=== PATIENT | female | born 1995 | race African-American/Black ===

== ENCOUNTER → 2018-03-22 | Outpatient (CLI) | payer SELFPAY ==
[~2018-03-22] MED LIST: AMOX-359 PO; AMOX500T10 PO; CYAN100058; DOXY1TAB3 PO; IRON150C19 PO; ONDA-2 PO; School Note; VITA1CAP46 PO
[2018-03-22 11:20] LABS: PLATELET COUNT, AUTOMATED 213 K/uL (150-450)
== END ==
LOC: LAB 08:40
PROVIDERS: ATTEND Obstetrics & Gynecology
DX: Z34.81 Encounter for supervision of other normal pregnancy, first trimester (principal); R82.79 Other abnormal findings on microbiological examination of urine
CPT/HCPCS: 36415; 81001; 85025; 86592; 86703; 86762; 86787; 86850; 86900; 86901; 87088; 87340

== ENCOUNTER → 2018-06-20 | Outpatient (CLI) | payer MEDICAID ==
[~2018-06-20] MED LIST changes: +FLU60VIA41 IM; +PEDI1TAB5 PO
--- NOTE | 2018-06-20 15:18 | RADIOLOGY IMAGING REPORT ---
FACILITY: [facility] PATIENT NAME: Nathalie Laguerre : 1995 MR: [id number] V: [id number] EXAM DATE: ORDERING PHYSICIAN: ALEKSANDR METZ TECHNOLOGIST: Location: [facility] [place] Patient: Nathalie Laguerre : 1995 Visit/Account:[id number] Date of Sevice: 06/20/2018 [facility] OB ANATOMICAL SURVEY History: survey ADDITIONAL HISTORY: LMP 01/31/2018 translating to a menstrual age of 20 weeks zero days COMPARISON STUDIES: none FINDINGS: Intrauterine gestations: one presentation: Variable position. Final position Vertex. heart rate: 138 bpm Amniotic fluid volume: EJ 14.8 cm; MVP 4.8 cm Placenta: Posterior. Inferior margin 3.2 cm from the internal os. No evidence of previa. Maternal adnexa: negative Cervix: closed and 4.1 cm in length Anatomic Survey: There is a single choroid plexus cyst measuring 3 x 5 mm. Neural anatomy and spinal axis appear othe rwise unremarkable. Face lips and nose are visualized. Four-chamber heart and outflow tracks, stom ach, kidneys, bladder , umbilical cord, normal cord insertion seen. 2 arms and 2 legs visualized. Fe yaquelin anatomy unremarkable. Biometrics: BPD: 4.4 cm corresponding to 19 weeks three days HC: 17.6 cm corresponding to 20 weeks one AC: 16.1 cm corresponding to 21 weeks two days FL: 3.4 cm corresponding to 20 weeks four days Measurements are concordant or within normal variance with composite sonographic age 20 weeks and thr ee days which corresponds well with clinical dates Estimated weight (EFW): 373 grams +/- 55 grams . 84th percentile based on clinical dates. IMPRESSION: Single living intrauterine gestation in variable position with biometric measurements and composite s onographic age within normal variance of previously established clinical dates. anatomy: Solitary choroid plexus cyst noted. Choroid plexus cysts in isolation are usually i ncidental and resolve over the . There is an increased incidence of choroid plexus cysts wi th genomic abnormalities. Consequently, management options dependent upon parental desire would incl ude evaluation for other markers or level two ultrasound or karyotyping via amniocentesis versu s follow-up ultrasound. anatomy otherwise unremarkable. Report Dictated By: Josué Terry MD at 06/20/2018 2:57 PM Report E-Signed By: Josué Terry MD at 06/20/2018 3:15 PM WSN:MARIO
== END ==
LOC: RAD 11:01
PROVIDERS: ATTEND Obstetrics & Gynecology
DX: Z34.02 Encounter for supervision of normal first pregnancy, second trimester (principal); G93.0 Cerebral cysts

== ENCOUNTER → 2018-08-16 | Outpatient (CLI) | payer MEDICAID ==
[~2018-08-16] MED LIST changes: +DIPH0.5D12 IM
[2018-08-16 14:46] LABS: PLATELET COUNT, AUTOMATED 197 K/uL (150-450)
== END ==
LOC: LAB 13:31
PROVIDERS: ATTEND Advanced Practice Midwife
DX: Z3A.28 28 weeks gestation of pregnancy (principal); O16.2 Unspecified maternal hypertension, second trimester
CPT/HCPCS: 36415; 82040; 82247; 82310; 82374; 82435; 82565; 82570; 82947; 82950; 83615; 84075; 84132; 84155; 84156; 84295; 84450; 84460; 84520; 84550; 85025

== ENCOUNTER → 2018-08-29 | Outpatient (CLI) | payer MEDICAID ==
--- NOTE | 2018-08-29 13:54 | RADIOLOGY IMAGING REPORT ---
FACILITY: [facility] [place] PATIENT NAME: Nathalie Laguerre : 1995 MR: [id number] V: [id number] EXAM DATE: [id number] ORDERING PHYSICIAN: ELANA MONTGOMERY TECHNOLOGIST: [place] [facility] [place] Nathalie Laguerre : 1995 Visit/Account:[id number] Date of Sevice: 08/29/2018 [facility] [place] OB LIIMITED HISTORY: Follow-up decreased growth compared to dates COMPARISON: June 20, 2018 TECHNIQUE: Transabdominal imaging was performed for assessment of the fetus and maternal pelvic s tructures. Transvaginal imaging was not performed. FINDINGS: Intrauterine gestations: Single. presentation: Cephalic. heart rate: 1:30 bpm. Amniotic fluid volume: ; EJ 11.76 cm; MVP 3.67 cm. The umbilical cord SD ratios are as follows, at the placenta 2.4, at the cord insertion 3.1 and the m idsection 2.7 Placenta: Posterior. Uterus: Gravid, otherwise grossly unremarkable where visualized. Maternal adnexa/ovaries: Not evaluated. Cervix: Not evaluated. Gestational Parameters: BPD: 7.43 cm, 32nd percentile HC: 28.45 cm, 50th percentile AC: 23.957 m, 6th percentile FL: 5.51 cm, 14th percentile Average ultrasound age (AUA): 29 weeks/ five days Estimated age based on LMP: 30 weeks/ zero days Estimated weight (EFW): 1303 grams +/- 191 grams 10th percentile Anatomic Survey: Anatomic survey not performed. Previously noted choroid plexus cyst was no longer seen however IMPRESSION: Single viable fetus in cephalic presentation with an estimated gestational age by measurements of 29 weeks and five days. This corresponds to the estimated gestational age on LMP of 30 weeks and zero d ays Estimated weight 1303 g, 10th percentile EJ measured 11.76 cm, MVP 3.67 cm The umbilical cord SD ratios are as follows: At the placenta 2.4, at the cord insertion 3.1 mid secti on 2.7 Report Dictated By: Deandra Escobar MD at 08/29/2018 1:40 PM Report E-Signed By: Deandra Escobar MD at 08/29/2018 1:48 PM WSN:[email or web address]
== END ==
LOC: RAD 09:14
PROVIDERS: ATTEND Advanced Practice Midwife
DX: Z02.9 Encounter for administrative examinations, unspecified (principal)

== ENCOUNTER → 2018-09-19 | Outpatient (CLI) | payer MEDICAID ==
[~2018-09-19] MED LIST changes: +BUTA1TAB14 PO
--- NOTE | 2018-09-19 11:37 | RADIOLOGY IMAGING REPORT ---
FACILITY: [facility] PATIENT NAME: Nathalie Laguerre : 1995 MR: [id number] V: [id number] EXAM DATE: ORDERING PHYSICIAN: ELANA MONTGOMERY TECHNOLOGIST: [place] [facility] [place] Patient: Nathalie Laguerre : 1995 Visit/Account:[id number] Date of Sevice: 09/19/2018 Exam type: [facility] BIOPHYSICAL W/O NST History: MATERN CARE FOR OTH OR SUSP POOR FETL GRTH, THIRD TRI, UNSP Comparison: August 29, 2018. Findings: There is a single fetus in vertex presentation. heart rate is 129 bpm. The placenta is fundal and posterior in location The EJ measures 7.6 cm The MVP measures 3.02 x 5.21 cm Biophysical profile score is eight out of eight Gestational age by LMP is 33 weeks and four days IMPRESSION: 1. Single viable fetus in vertex presentation with an estimated gestational age by LMP of 33 weeks a nd four days The biophysical profile score was eight out of eight The EJ measured 7.6 cm. The MVP was 3.02 x 5.21 cm Report Dictated By: Deandra Escobar MD at 09/19/2018 11:15 AM Report E-Signed By: Deandra Escobar MD at 09/19/2018 11:33 AM WSN:MARIO
== END ==
LOC: RAD 08:52
PROVIDERS: ATTEND Advanced Practice Midwife
DX: Z02.9 Encounter for administrative examinations, unspecified (principal)

== ENCOUNTER → 2018-09-26 | Outpatient (CLI) | payer MEDICAID ==
--- NOTE | 2018-09-26 14:11 | RADIOLOGY IMAGING REPORT ---
FACILITY: [facility] PATIENT NAME: Nathalie Laguerre : 1995 MR: [id number] V: [id number] EXAM DATE: ORDERING PHYSICIAN: ELANA MONTGOMERY TECHNOLOGIST: Location: [facility] [place] Patient: Nathalie Laguerre : 1995 Visit/Account:[id number] Date of Sevice: 09/26/2018 biophysical profile Indication: Asymmetric IUGR. Follow-up. Reported gestational age 34 weeks 4 days. Comparison: September 19, 2018 Findings: breathing movement: 2/2 Gross body movement: 2/2 tone: 2/2 Amniotic fluid volume: 2/2 There is a posterior placenta without evidence of placenta previa. There is a single live intrauterin e gestation with heart tones measuring 150 beats per minute. Four quadrant amniotic fluid index is normal measuring 11.7 cm (previously 7.6 cm). The largest pocke t measures 4.7 cm. IMPRESSION: 1. Normal biophysical profile. 2. Normal amniotic fluid index. Report Dictated By: Modesto Paez at 09/26/2018 2:03 PM Report E-Signed By: Modesto Paez at 09/26/2018 2:06 PM WSN:[email or web address]
== END ==
LOC: RAD 07:58
PROVIDERS: ATTEND Advanced Practice Midwife
DX: Z02.9 Encounter for administrative examinations, unspecified (principal)

== ENCOUNTER → 2018-10-03 | Outpatient (CLI) | payer MEDICAID ==
--- NOTE | 2018-10-03 14:18 | RADIOLOGY IMAGING REPORT ---
FACILITY: [facility] [place] PATIENT NAME: Nathalie Laguerre : 1995 MR: [id number] V: [id number] EXAM DATE: ORDERING PHYSICIAN: ELANA MONTGOMERY TECHNOLOGIST: Location: [facility] [place] Patient: Nathalie Laguerre : 1995 Visit/Account:[id number] Date of Sevice: 10/03/2018 [facility] BIOPHYSICAL W/O NST Biophysical profile FINDINGS: Following parameters were obtained. breathing/2 Gross body movements/2 tone/2 Amniotic fluid volume/2 (10.6 cm per largest pocket measures 3.6 cm. ) Fetus in a vertex presentation Placenta posterior and fundal. Heart rate 130 BPM. IMPRESSION: Biophysical profile of 03/20. Report Dictated By: Enoch Sunshine MD at 10/03/2018 2:11 PM Report E-Signed By: Enoch Sunshine MD at 10/03/2018 2:14 PM WSN:[email or web address]
== END ==
LOC: US 09:39
PROVIDERS: ATTEND Advanced Practice Midwife
DX: O36.5990 Maternal care for other known or suspected poor fetal growth, unspecified trimester, not applicable or unspecified (principal)
CPT/HCPCS: 76820

== ENCOUNTER → 2018-10-10 | Outpatient (CLI) | payer MEDICAID ==
[~2018-10-10] MED LIST changes: +BET6I IM ONLY; +CALC-515 PO; +DIPH-911 PO; +PREN-127 PO
== END ==
LOC: LAB 09:30
PROVIDERS: ATTEND Advanced Practice Midwife
DX: Z36.85 Encounter for antenatal screening for Streptococcus B (principal)
CPT/HCPCS: 87081

== ENCOUNTER 2018-10-12 20:16 | Inpatient (IN) | payer MEDICAID ==
[~2018-10-12] VITALS: Ht 154.9 cm; Wt 55.8 kg
[2018-10-12] MEDS ORDERED: FAMOTIDINE(*) 20MG/50ML PREMIX 50 ML IVPB PRN (20:19)
[2018-10-12] MEDS ORDERED: OXYTOCIN 30 UNIT/D5LR 500 ML 500 ML IV PRN (20:19)
[2018-10-12] MEDS ORDERED: ceFAZolin(*) 2GM/D5W 50ML 50 ML IVPB PRN (20:19)
[2018-10-12] MEDS ORDERED: FLUSH 10 ML SYR IVP PRN (20:20)
[2018-10-12] MEDS ORDERED: METOCLOPRAMIDE 10 MG/2 ML SDV IVP PRN (20:20)
[2018-10-12] MEDS ORDERED: LIDOCAINE 1% LOCAL 300 MG/30ML INJ PRN (20:20)
[2018-10-12] MEDS ORDERED: DINOPROSTONE 10 MG INSERT PV ONE (20:20)
[2018-10-12] MEDS ORDERED: LIDOCAINE/SOD BICARB 8.4% SYR SC PRN (20:20)
[2018-10-12] MEDS ORDERED: ACETAMINOPHEN 500 MG TAB PO PRN (21:20)
[2018-10-12] MEDS ORDERED: ONDANSETRON 4 MG/2 ML VIAL IVP PRN (21:20)
[2018-10-12] MEDS ORDERED: ZOLPIDEM TARTRATE 5 MG TAB PO ONE (21:20)
[2018-10-12] MEDS: LR(*) 1000 ML BAG 1,000 ML IV PRN (21:45)
[2018-10-12 21:47] LABS: PLATELET COUNT, AUTOMATED 180 K/uL (150-450)
[2018-10-13] VITALS: BP 118/72; Ht 154.9 cm; Wt 55.8 kg
[2018-10-13] MEDS: CALCIUM CARBONATE 500 MG CHEW PO PRN ×2 (00:57→12:43)
--- NOTE | 2018-10-13 08:23 | History & Physical ---
History of Present Illness Age of Patient: 22 : 1 Para or TPAL: 0 EDC per U/S: Nov 03, 2018 Chief Complaint Pt is a 22yo at 37 0/7 by LMP and first trimester US with an MILKA of 11/04/18 who was a scheduled IOL admit last night for asymmetric FGR. M recommended that the pt be induced at 37 weeks for AC of <3%tile/ EFW at 31%. Pt was admitted and Cervidil was placed for cervical ripening overnight. Pt denies ROSS, vision changes, N/V, and RUQ pain. She is feeling some mild contractions, but nothing painful. Her boyfriend Gerard is at the bedside for support. She desires and unmedicated . History Patient's Blood Type: B Positive Rubella Status: Immune Group B Strep Screen: Negative Obstetrical History: Current FGR Allergies: Coded Allergies: No Known Drug Allergies (Unverified , 09/18/16) Family History: FH: hypertension MGM M-UNCLE Med Rec Home Meds Active Scripts [School Note] No Conflict Check Patient was seen in the office today. Tested positive for influenza A. May return to school on 09/17/17. Prov:DERECK CONTRERAS DNP, [employer]-BC 09/12/17 Reported Medications Calcium Carbonate (TUMS) 200 Mg Tab.chew, 200 MG PO, TAB.CHEW 10/10/18 Diphenhydramine Hcl (UNISOM) 50 Mg Capsule, 50 MG PO, CAPSULE 10/10/18 Vits W-Ca,Fe,Fa(<1MG) ( VITAMINS) 1 Each Tablet, 1 EACH PO DAILY, TAB 10/10/18 Discontinued Reported Medications Cyanocobalamin (Vitamin B-12) (Vitamin B-12) 1,000 Mcg Capsule 03/22/18 Iron Polysaccharides Complex (POLYSACCHARIDE IRON 150) 150 Mg Capsule, 150 MG PO, CAPSULE 03/22/18 Vitamin B Complex (VITAMIN B COMPLEX) 1 Each Capsule, 1 EACH PO, CAPSULE 03/22/18 Discontinued Scripts Butalb/Acetaminophen/Caff 50-325-40 Mg (FIORICET 50-325-40) 1 Each Tablet, 1-2 TAB PO Q4H for headache, #30 TAB 0 Refills Prov:ELANA MONTGOMERY CN 09/06/18 Pediatric Multivit Comb No.42 (FLINTSTONES) 1 Each Tab.chew, 2 EACH PO DAILY, #60 TAB.CHEW Prov:ALEKSANDR METZ MD 05/24/18 Doxylamine/Pyridoxine Hcl (BARRY SANTIAGO 10-10 MG TABLET) 1 Each Tablet.dr, 4 EACH PO DIRECTED, #60 TAB 1 Refill Take 2 tabs PO QHS PRN nausea. If nausea continues, take 1 tab w/ breakfast. May take 1 tab at lunch PRN. Max of 4 tabs per day. Prov:ALEKSANDR METZ MD 03/22/18 Review of Systems Constitutional: No Fever Neurological: No Dizziness Eyes: No Vision Change Cardiovascular: No Chest Pain Respiratory: No Shortness of Breath Gastrointestinal: No Nausea, No Vomiting, No Diarrhea Musculoskeletal: No Pain Psychiatric: No Depression, No Anxiety Exam General Exam Vital Signs Vital Signs Date Time Temp Pulse Resp B/P (MAP) Pulse Ox O2 Delivery O2 Flow Rate FiO2 10/13/18 00:00 97.9 70 14 118/72 (87) 94 Room Air General Apperance: Alert/Awake/No Acute Distress Neuro: No Gross deficits Eyes: Normal Extraocular Movement & Vison, PERRLA ENT: Normal Cardiovascular: Regular Rate and Rhythm Respiratory: No Respiratory Distress, Clear to Auscultation Abdomen: Soft, Non-Tender, Non-Distended : Normal Musculoskeletal: No Weakness/Pain Extremities: No Cyanosis,Clubbing or Edema Integumentary: Skin Intact without Lesions or Rash Psychological: Alert & Oriented X3, Appropriate Mood & Affect Cervical Dialation: 1 Cervical Effacement (%): 80 Cervical Consistency: Soft Cervical Position: Mid Station: -3 Presentation: Vertex Uterine Contractions(Q min): 5 Uterine Contraction Strength: Mild UC Resting Tone: Soft Fetus Feeling Movement?: Yes Estimated Weight(grams): 2200 Heart Tones: 130 Heart Tone Variabilty: Moderate FHT Accelerations: 15X15 FHT Decelerations: None FHT Category: I Medical Decision Making Data Points Result Diagram: 10/12/180 Assessment and Plan Hospital Day: 2 [employer] Plan: Routine Labor/Induct Care Problems: (1) Asymmetric intrauterine growth restriction affecting , antepartum Status: Acute (2) Encounter for induction of labor Status: Acute Assessment & Plan: Assessment/Plan: AP is a 22 y.o. at 37w0d wks with an Estimated Date of Delivery: 11/03/18 dated by LMP and first trimester US here for IOL for FGR Labor state: Not in labor, ko score 4 after Cervidil over night, plan for cook catheter and then possibly low dose Pitocin concurrently. Reviewed R/B/A with pt. well-being: Category I FHT: Continuous monitoring for indica tions (FGR) Maternal well-being: VSS , normotensive, afebrile and membranes intact PNL: GBS neg, Type/Rh B+, rubella immune Pain Management: Plans for unmedicated and to use non-pharm methods, hydrotherapy, movement, music therapy, aromatherapy. Epidural code word: Feed: Breast c/b: * Asymmetric growth restriction Anticipate labor progression, re-evaluate in 2-3 hours or prn ELANA MONTGOMERY CNM Oct 13, 2018 08:23
[2018-10-13] MEDS: fentaNYL CITR 100 MCG/2 ML AMP IVP PRN ×2 (09:48→22:32)
--- NOTE | 2018-10-13 10:13 | Labor Progress Note ---
Labor Subjective Progress Notes Subjective Pt is having contractions every 2-5 minutes that are only mildly uncomfortable, Denies LOF and VB. Denies ROSS, vision changes, and RUQ pain. Mother and boyfriend at bedside and very supportive. Verbalizes understanding of plan for cervical ripening balloon and Pitocin induction Feeling Movement?: Yes Vaginal Discharge/Fluid: Bloody Show Labor Pain: Mild Neurological: No Headache Eyes: No Visual Disturbances Labor Objective Vital Signs Vital Signs Date Time Temp Pulse Resp B/P (MAP) Pulse Ox O2 Delivery O2 Flow Rate FiO2 10/13/18 00:00 97.9 70 14 118/72 (87) 94 Room Air Vaginal Discharge/Fluid?: Bloody Show Cervical Dialation: 1 Cervical Effacement (%): 80 Cervical Consistency: Soft Cervical Position: Anterior Station: -2 Presentation: Vertex Uterine Contractions(Q min): 3 Uterine Contraction Strength: Mild UC Resting Tone: Soft Fetus Estimated Weight(grams): 2200 Heart Tones: 130 Heart Tone Variabilty: Moderate FHT Accelerations: 15X15 FHT Decelerations: None FHT Category: I General Exam General Appearance: Alert/Awake/No Acute Distress ENT: Normal Neck: No Masses Cardiovascular: Normal Rhythm & Peripheral Pulses Respiratory: No Respiratory Distress, Clear to Auscultation Abdomen: Gravid - Non-Tender : Normal Musculoskeletal: No Weakness/Pain Extremities: No Cyanosis,Clubbing or Edema Integumentary: Skin Intact without Lesions or Rash Psychological: Alert & Oriented X3, Appropriate Mood & Affect Other Result Diagram: 10/12/182139 Assessment and Plan Problems: (1) Asymmetric intrauterine growth restriction affecting , antepartum Status: Acute (2) Encounter for induction of labor Status: Acute Assessment & Plan: Assessment/Plan: AP is a 22 y.o. at 37w0d wks with an Estimated Date of Delivery: 11/03/18 dated by LMP and first trimester US here for IOL for FGR Labor state: Early labor, ko score 4 after Cervidil over night, Cook catheter placed and then low dose Pitocin concurrently at 1 hour. Reviewed R/B/A with pt. well-being: Category I FHT: Continuous monitoring for indications (FGR) Maternal well-being: VSS , normotensive, afebrile and membranes intact PNL: GBS neg, Type/Rh B+, rubella immune Pain Management: Plans for unmedicated and to use non-pharm methods, hydrotherapy, movement, music therapy, aromatherapy. Epidural code word: RED. Pt did request IV fentanyl for cath placement and tolerate well Feed: Breast c/b: * Asymmetric growth restriction Anticipate labor progression, re-evaluate in 2-3 hours or prn ELANA MONTGOMERY CNM Oct 13, 2018 10:13
[2018-10-13] MEDS ORDERED: TERBUTALINE SULF 1 MG/ML VIAL IVP PRN (10:25)
[2018-10-13] MEDS ORDERED: OXYTOCIN 30 UNIT/D5LR 500 ML 500 ML IV PRN (11:00)
--- NOTE | 2018-10-13 12:46 | Labor Progress Note ---
Labor Subjective Progress Notes Subjective Pt is starting to feel more uncomfortable with contractions, breathing through them without talking. Did not like the fentanyl IV earlier for cath placement. She would like to try the bath. Asking lots of questions about process and hoping that it does not take that long. Feeling Movement?: Yes Vaginal Discharge/Fluid: Bloody Show Labor Pain: Moderate Neurological: No Headache Eyes: No Visual Disturbances Labor Objective Vital Signs Vital Signs Date Time Temp Pulse Resp B/P (MAP) Pulse Ox O2 Delivery O2 Flow Rate FiO2 10/13/18 00:00 97.9 70 14 118/72 (87) 94 Room Air Vaginal Discharge/Fluid?: Bloody Show Fetus Estimated Weight(grams): 2200 Heart Tones: 130 Heart Tone Variabilty: Moderate FHT Accelerations: 15X15 FHT Decelerations: Variable (one variable) FHT Category: II General Exam General Appearance: Alert/Awake/No Acute Distress, Afebrile ENT: Normal Neck: No Masses : Normal Psychological: Alert & Oriented X3, Appropriate Mood & Affect Other Result Diagram: 10/12/182139 Assessment and Plan Hospital Day: 1 [employer] Plan: Routine Labor/Induct Care Problems: (1) Asymmetric intrauterine growth restriction affecting , antepartum Status: Acute (2) Encounter for induction of labor Status: Acute Assessment & Plan: Assessment/Plan: AP is a 22 y.o. at 37w0d wks with an Estimated Date of Delivery: 11/03/18 dated by LMP and first trimester US here for IOL for FGR Labor state: early labor, cook catheter with concurrent low dose Pitocin started well-being: Category I FHT: CAT II for one variable. Continuous monitoring for indications (FGR) Maternal well-being: VSS , normotensive, afebrile and membranes intact PNL: GBS neg, Type/Rh B+, rubella immune Pain Management: Using hydrotherapy music therapy, aromatherapy with good eff ect. Epidural code word: RED Feed: Breast c/b: * Asymmetric growth restriction Anticipate labor progression, re-evaluate in 2-3 hours or prn. Will make PEDS aware when time for delivery for FGR 37 weeks ELANA MONTGOMERY CNM Oct 13, 2018 12:46
--- NOTE | 2018-10-13 16:43 | Labor Progress Note ---
Labor Subjective Progress Notes Subjective Pt is up and walking around. She feels she is tolerating the pain with contractions well. She is breathing and focusing inward with contractions. Feeling Movement?: Yes Labor Pain: Moderate Neurological: No Headache Eyes: No Visual Disturbances Labor Objective Vital Signs Vital Signs Date Time Temp Pulse Resp B/P (MAP) Pulse Ox O2 Delivery O2 Flow Rate FiO2 10/13/18 00:00 97.9 70 14 118/72 (87) 94 Room Air Presentation: Vertex Uterine Contraction Strength: Moderate UC Resting Tone: Soft Fetus Estimated Weight(grams): 2200 Heart Tone Variabilty: Moderate FHT Accelerations: 15X15 FHT Decelerations: None General Exam General Appearance: Alert/Awake/No Acute Distress Respiratory: No Respiratory Distress Psychological: Alert & Oriented X3 Other Result Diagram: 10/12/182139 Assessment and Plan Problems: (1) Asymmetric intrauterine growth restriction affecting , antepartum Status: Acute (2) Encounter for induction of labor Status: Acute Assessment & Plan: Assessment/Plan: AP is a 22 y.o. at 37w0d wks with an Estimated Date of Delivery: 11/03/18 dated by LMP and first trimester US here for IOL for FGR Labor state: Approaching active labor, cook catheter with concurrent low dose Pitocin started well-being: Category CAT II for one variable and 2 late decelerations with moderate variability. Encourage position changes. Continuous monitoring for indications (FGR) Maternal well-being: VSS , normotensive, afebrile and membranes intact PNL: GBS neg, Type/Rh B+, rubella immune Pain Management: Using hydrotherapy, music therapy, aromatherapy, upright positions. Epidural code word: RED Feed: Breast c/b: * Asymmetric growth restriction Anticipate labor progression, re-evaluate in 2-3 hours or prn. PEDS aware and when time for delivery will let them know ELANA MONTGOMERY CNM Oct 13, 2018 16:43
[2018-10-13] MEDS: LR(*) 1000 ML BAG 1,000 ML IV PRN ×2 (17:59→20:00)
--- NOTE | 2018-10-13 19:10 | Labor Progress Note ---
Labor Subjective Progress Notes Subjective Pt is in the tub after AROM. Feels she is coping well, but had a hard time tolerating the cervical check and AROM. Mother at bath side and very supportive. Denies ROSS, vision changes, RUQ pain. Feeling contraction pain in lower abdomen. Feeling Movement?: Yes Vaginal Discharge/Fluid: Bloody Show, Clear Fluid, Moderate Amount Labor Pain: Moderate Neurological: No Headache Eyes: No Visual Disturbances Labor Objective Vital Signs Vital Signs Date Time Temp Pulse Resp B/P (MAP) Pulse Ox O2 Delivery O2 Flow Rate FiO2 10/13/18 00:00 97.9 70 14 118/72 (87) 94 Room Air Vaginal Discharge/Fluid?: Bloody Show, Clear Fluid Cervical Dialation: 7.5 Cervical Effacement (%): 80 Cervical Consistency: Soft Cervical Position: Anterior Station: 0 Presentation: Vertex Uterine Contraction Strength: Moderate UC Resting Tone: Soft Fetus Estimated Weight(grams): 2200 Heart Tones: 140 Heart Tone Variabilty: Minimal (minimal with periods of moderate. In the tub) FHT Accelerations: Present, 15X15 FHT Decelerations: Early, Late FHT Category: II General Exam General Appearance: Alert/Awake/No Acute Distress, Afebrile ENT: Normal Abdomen: Gravid - Non-Tender Psychological: Alert & Oriented X3, Appropriate Mood & Affect Other Result Diagram: 10/12/182139 Assessment and Plan Problems: (1) Asymmetric intrauterine growth restriction affecting , antepartum Status: Acute (2) Encounter for induction of labor Status: Acute Assessment & Plan: Assessment/Plan: AP is a 22 y.o. at 37w0d wks with an Estimated Date of Delivery: 11/03/18 dated by LMP and first trimester US here for IOL for FGR Labor state: Approaching transition, cook catheter came out at 1722 with good bloody show, pt has rapid dilation since cook came out. Continue pitocin and position changes well-being: Category CAT II for variable, repetitive early decels and rare late deceleration. Difficulty monitoring in the tub. Readjusted monitor and the tracing is more consistent. Will plan to get her out of the tub soon if continues minimal variability for maternal oxygen and fluid bolus. Continuous monitoring for indications (FGR) Maternal well-being: VSS , normotensive, afebrile and AROM for clear fluid @1807 PNL: GBS neg, Type/Rh B+, rubella immune Pain Management: Using hydrotherapy and coping well. Epidural code word: RED Feed: Breast c/b: * Asymmetric growth restriction Anticipate labor progression, re-evaluate in 2-3 hours or prn. PEDS aware and when time for delivery will let them know ELANA MONTGOMERY CNM Oct 13, 2018 19:10
[2018-10-13] MEDS ORDERED: BENZOCAINE 20% 60 ML BTL TP PRN (22:15)
[2018-10-13] MEDS ORDERED: ACETAMINOPHEN 325 MG TAB PO PRN (22:15)
[2018-10-13] MEDS ORDERED: LANOLIN OINT 7 GM TUBE TP PRN (22:15)
[2018-10-13] MEDS ORDERED: HYDROCORTISONE 2.5% CR 30GM TB PR PRN (22:15)
[2018-10-13] MEDS ORDERED: GLYCERIN/WITCH HAZEL LEAF 1 PK TP PRN (22:15)
[2018-10-13] MEDS ORDERED: MAGNESIUM HYDROXIDE* 30ML UDCP PO PRN (22:15)
[2018-10-13] MEDS: IBUPROFEN 800 MG TAB PO SCH (22:31)
--- NOTE | 2018-10-13 22:43 | OB Delivery Note ---
Delivery Note Vaginal Delivery Type: Spont. Vaginal Delivery Delivery Date: Oct 13, 2018 Estimated Gestational Age(wks): 37 Delivery Anesthesia: Other (non-pharm methods) Infant Sex: Male Apgars: 1 Minute, 5 Minute Repair Needed: Laceration, Vaginal, Perineal, 2nd Degree Estimated Blood Loss: 300 Notes: AP is a 22 yo G1 now P1 at 37 0/7 who was admitted for an IOL for FGR on 10/12/18 with Cervidil, cervical ripening balloon, AROM and Pitocin. Pt was admitted to the family care unit @ 1999 for IOL for FGR. Cervical exam on admission was /-3. She had AROM on 10/13/2018 at 1807, for clear moderate amount of fluid. Pt was GBS was neg. FHR were CAT I primarily throughout first stage. Pt utilized hydrotherapy, music, aromatherapy and controlled breathing primarily for pain management. Pt was completely dilated on 10/13/18 @ 1921 and pt began pushing at 1937. At 2057 pt had a NSVB of live male infant APGARS 7/8 weighing. The head delivered spontaneously in the OA position and restituted DUKE with no nuchal cord. The anterior shoulder was delivered a traumatically and the posterior shoulder followed. Body delivered easily. Face was wiped with nose and bulb suction and then placed on the maternal abdomen. The infant was dried and stimulated and noted to have a spontaneous cry and spontaneous movement of all 4 extremities. Cord was clamped X 2 by CNM after pulsations ceased and cut by patient's mother. Mother was in hands and knees position. At 2110 the placenta and membranes delivered spontaneous and intact with a 3 vessel cord after gentle downward traction and maternal push. 30 units of Pitocin was placed in 500cc IV to firm the uterus and started immediately after placenta delivery. Upon inspection of the perineum a second degree laceration was noted and repaired using a 3-0 Vicryl under 1% lidocaine. Hemostasis observed. EBL 300with fundus firm with minimal bleeding. Mom and baby were left in stable condition. initiated. "I personally examined the patient and there are no unintended foreign objects in the vagina and sponge and lap sponges counts were correct. Yeimi Gallegos CNM was present throughout the entire delivery as well as Yaritza Medina CNM [employer] in Attendence: YEIMI Morales CNM Oct 13, 2018 22:42
[2018-10-13 23:05] VITALS: BP 121/70
[2018-10-14] MEDS: APAP/HYDROCODONE 325/5 TAB PO PRN ×3 (00:42→20:23)
[2018-10-14] MEDS: IBUPROFEN 800 MG TAB PO SCH ×3 (02:10→15:53)
[2018-10-14 03:20] VITALS: BP 121/70
[2018-10-14] MEDS: DOCUSATE CALCIUM 240 MG CAP PO SCH ×2 (08:43→20:23)
[2018-10-14 08:45] VITALS: BP 116/72
[2018-10-14 13:30] VITALS: BP 115/65
--- NOTE | 2018-10-14 13:58 | OB/GYN Progress Note ---
OB Subjective Progress Notes Subjective AP is feeling well today. She has a good night and got a few hours of sleep. is going well and she is working on getting a good latch. She reports colostrum and soft breasts. She is having moderate bleeding with minimal cramping, but her perineal area is quite sore. She is wondering is she could have something a little stronger just for today for her pain, as she is having difficulty sitting. She is eating and drinking well. Denies ROSS, vision changes, RUQ abd pain, BLE pain or tenderness and uterine tenderness. Her boyfriend is at the bedside and is very supportive and helping her with . GI: POS Flatus; NEG Nausea, NEG Vomiting, NEG Bowel Movement : Voiding Well, Vaginal Bleeding, Moderate Pain: Moderate, Tolerating PO Pain Meds Neurological: No Headache Eyes: No Visual Disturbances OB Objective Physical Exam Vital Signs Date Time Temp Pulse Resp B/P (MAP) Pulse Ox O2 Delivery O2 Flow Rate FiO2 10/14/18 08:45 98.1 78 18 116/72 (87) 95 Room Air Intake and Output 10/14/18 06:59 Intake Total 2000 ml Balance 2000 ml IV Total 2000 ml General Appearance: Alert/Awake/No Acute Distress, Afebrile Neurological: No Gross deficits Eyes: Normal Extraocular Movement & Vison, PERRLA ENT: Normal Neck: No Masses Cardiovascular: Normal Rhythm & Peripheral Pulses Respiratory: No Respiratory Distress Abdomen: Soft, Non-Tender, Non-Distended, RUQ Non-Tender, Fundus Firm Incision: Clean (laceration well approximated and no signs of infection), Dry, Intact : Normal Musculoskeletal: No Weakness/Pain Extremities: No Cyanosis,Clubbing or Edema Integumentary: Skin Intact without Lesions or Rash Psychological: Alert & Oriented X3, Appropriate Mood & Affect Result Diagram: 10/12/182139 Assessment and Plan Problems: (1) Asymmetric intrauterine growth restriction affecting , antepartum Status: Resolved (2) Encounter for induction of labor Status: Resolved (3) (normal spontaneous vaginal delivery) Status: Resolved (4) Second degree laceration of perineum, delivered, current hospitalization Status: Acute Assessment & Plan: Advised pt to use the yuko bottle when urinating and only pat dry. Use the tucks and spray as needed as well as ibuprofen and [place] if needed. Pelvic rest and stool softeners as not to strain. (5) care and examination of lactating mother Onset Date: ~ 10/13/2018 Assessment & Plan: AP is s/p day # 1 after an of a male infant last night 10/13/18. She is progressing well and is up and about. She is getting help with from the nurses. Her pain is not tolerated with just ibuprofen so I asked the nurses to please give her [place] today. She has adequate family support. Plan for her to be discharged tomorrow to home. (6) care and examination immediately after delivery Status: ELANA Farooq CNM Oct 14, 2018 13:58
[2018-10-14 16:00] VITALS: BP 109/62
[2018-10-14 20:25] VITALS: BP 126/60
[2018-10-15 03:43] VITALS: BP 124/73
[2018-10-15 08:46] VITALS: BP 117/74
[2018-10-15] MEDS ORDERED: IBUPROFEN 800 MG TAB PO SCH (10:00)
[2018-10-15] MEDS: DOCUSATE CALCIUM 240 MG CAP PO SCH (10:31)
--- NOTE | 2018-10-15 11:38 | OB/GYN Discharge Summary ---
Discharge Summary Reason for Hosp/Final Diag: (1) Asymmetric intrauterine growth restriction affecting , antepartum Status: Resolved (2) Encounter for induction of labor Status: Resolved (3) (normal spontaneous vaginal delivery) Status: Resolved (4) Second degree laceration of perineum, delivered, current hospitalization Status: Acute Hospital Course & Plan: Advised pt to use the yuko bottle when urinating and only pat dry. Use the tucks and spray as needed as well as ibuprofen and [place] if needed. Pelvic rest and stool softeners as not to strain. (5) care and examination of lactating mother Onset Date: ~ 10/13/2018 Hospital Course & Plan: AP is s/p day # 2 after an of a male infant on 10/13/18. She is progressing well and is up and about. She is doing well with . She has one small blister on her right nipple and has not nursed from that side this am. Stressed the importance of nursing both sides every time and if it is too painful than to pump that side. Her perineal pain is better today. She has taken one Lortab and that helped. She just has difficulty sitting. She denies ROSS, vision changes, RUQ pain, anxiety, heavy bleeding, and BLE calf pain. She has adequate family support. Plan for her to be discharged today and to room in with her baby as he will stay another night because he needs oxygen. Reviewed discharge instructions: Anxiety/depression, fevers, mastitis/clogged milk ducts, endometritis, Pre Eclampsia symptoms, DVTs, UTI symptoms and heavy bleeding. Encouraged pelvic rest for 6 weeks, increase hydration and 500cal/day increase for . Pt and boyfriend v erbalized their understanding. Discussed PPBC and the pt is thinking the Mirena IUD, but is not sure. She will think about it and let me know at the 2 week PP visit. (6) care and examination immediately after delivery Status: Resolved Lates Vital Signs Vital Signs Date Time Temp Pulse Resp B/P (MAP) Pulse Ox O2 Delivery O2 Flow Rate FiO2 10/15/18 03:43 98.3 71 14 124/73 (90) 95 10/14/18 08:45 Room Air Weight (Pounds): 123 Result Diagram: 10/12/182139 Condition: Improved Discharge: Home Home Meds Active Scripts [School Note] No Conflict Check Patient was seen in the office today. Tested positive for influenza A. May return to school on 09/17/17. 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 Reported Medications Calcium Carbonate (TUMS) 200 Mg Tab.chew, 200 MG PO, TAB.CHEW 10/10/18 Diphenhydramine Hcl (UNISOM) 50 Mg Capsule, 50 MG PO, CAPSULE 10/10/18 Vits W-Ca,Fe,Fa(<1MG) ( VITAMINS) 1 Each Tablet, 1 EACH PO DAILY, TAB 10/10/18 Discontinued Reported Medications Cyanocobalamin (Vitamin B-12) (Vitamin B-12) 1,000 Mcg Capsule 03/22/18 Iron Polysaccharides Complex (POLYSACCHARIDE IRON 150) 150 Mg Capsule, 150 MG PO, CAPSULE 03/22/18 Vitamin B Complex (VITAMIN B COMPLEX) 1 Each Capsule, 1 EACH PO, CAPSULE 03/22/18 Discontinued Scripts Butalb/Acetaminophen/Caff 50-325-40 Mg (FIORICET 50-325-40) 1 Each Tablet, 1-2 TAB PO Q4H for headache, #30 TAB 0 Refills Prov:ELANA MONTGOMERY CNM 09/06/18 Pediatric Multivit Comb No.42 (FLINTSTONES) 1 Each Tab.chew, 2 EACH PO DAILY, #60 TAB.CHEW Prov:ALEKSANDR METZ MD 05/24/18 Doxylamine/Pyridoxine Hcl (BARRY SANTIAGO 10-10 MG TABLET) 1 Each Tablet.dr, 4 EACH PO DIRECTED, #60 TAB 1 Refill Take 2 tabs PO QHS PRN nausea. If nausea continues, take 1 tab w/ breakfast. May take 1 tab at lunch PRN. Max of 4 tabs per day. Prov:ALEKSANDR METZ MD 03/22/18 Follow up Referrals: RN CCU @ [facility] with ELANA MONTGOMERY CNM Follow up in: 2 wks PO Discharge Diet: As Tolerates Discharge Activity: As Tolerates, Pelvic Rest ELANA MONTGOMERY CNM Oct 15, 2018 11:38
[2018-10-15] MEDS ORDERED: IBUP800T37 PO (11:57)
[2018-10-15] MEDS ORDERED: LOR5/325 PO (11:57)
== END 2018-10-15 17:21 | disposition home or self-care (01) | DRG 807 ==
LOC: OB 20:16
PROVIDERS: ADMIT Obstetrics & Gynecology; ATTEND Obstetrics & Gynecology
PROC: 10E0XZZ Delivery of Products of Conception, External Approach (ICD-10-PCS; principal; 2018-10-13)
PROC: 0KQM0ZZ Repair Perineum Muscle, Open Approach (ICD-10-PCS; 2018-10-13)
PROC: 10907ZC Drainage of Amniotic Fluid, Therapeutic from Products of Conception, Via Natural or Artificial Opening (ICD-10-PCS; 2018-10-13)
PROC: 0U7C7ZZ Dilation of Cervix, Via Natural or Artificial Opening (ICD-10-PCS; 2018-10-13)
DX: O36.5930 Maternal care for other known or suspected poor fetal growth, third trimester, not applicable or unspecified (principal); Z37.0 Single live birth; O70.1 Second degree perineal laceration during delivery; Z3A.37 37 weeks gestation of pregnancy
CPT/HCPCS: 85025; 86703; 86850; 86900; 86901; C1726; J2405; J2590; J3010; J7120